=== PATIENT | female | born 1950 ===

== ENCOUNTER 2018-01-01 12:15 | Inpatient (IN) | payer OTHER ==
[~2018-01-01] VITALS: Ht 152.4 cm; Wt 87.5 kg
[2018-01-15] MEDS ORDERED: FORTAMET1000 MG PO (15:51)
[2018-01-15] MEDS ORDERED: LANTUS SOL100 UNIT/1 (15:51)
[2018-01-15] MEDS ORDERED: LOSARTAN POTAS100 MG PO (15:51)
[2018-01-15] MEDS ORDERED: [UNRECOGNIZED DRUG - OTHER] PO (15:52)
[2018-01-15] MEDS ORDERED: GABAPENTIN800 MG PO (15:52)
[2018-01-15] MEDS ORDERED: RESTORIL30 MG PO (15:53)
[2018-01-15] MEDS ORDERED: CLONAZEPAM2 M1 PO (15:53)
[2018-01-15] MEDS ORDERED: CATAFLAN PO (15:54)
[2018-01-15] MEDS ORDERED: BACLOFEN PO (15:54)
[2018-01-15] MEDS ORDERED: PRILOSEC OTC20 MG PO (15:54)
[2018-01-20] MEDS ORDERED: DOCUSATE SODIU100 MG PO (08:02)
[2018-01-20] MEDS ORDERED: GABAPENTIN800 MG PO (08:02)
[2018-01-20] MEDS ORDERED: MEDROLPACK PO (08:03)
[2018-01-20] MEDS ORDERED: AMOX-CLAV 875-1 EACH PO (08:03)
[2018-01-20] MEDS ORDERED: PERCOCET 5-3251 EACH PO (08:04)
[2018-01-20] MEDS ORDERED: RESTORIL30 M1 PO (08:04)
== END 2018-01-20 14:31 | disposition home or self-care (01) | DRG 455 ==
LOC: PED 01-19 05:04 → O/R 01-19 05:04 → SURG 01-19 12:15 → PED 01-19 19:56
PROVIDERS: Orthopaedic Surgery Orthopaedic Surgery of the Spine
PROC: 0SG1071 Fusion of 2 or more Lumbar Vertebral Joints with Autologous Tissue Substitute, Posterior Approach, Posterior Column, Open Approach (ICD-10-PCS; 2018-01-19)
PROC: 0ST20ZZ Resection of Lumbar Vertebral Disc, Open Approach (ICD-10-PCS; 2018-01-19)
PROC: 0SG10AJ Fusion of 2 or more Lumbar Vertebral Joints with Interbody Fusion Device, Posterior Approach, Anterior Column, Open Approach (ICD-10-PCS; 2018-01-19)
PROC: 07DS3ZZ Extraction of Vertebral Bone Marrow, Percutaneous Approach (ICD-10-PCS; 2018-01-19)
PROC: 0SG10A0 Fusion of 2 or more Lumbar Vertebral Joints with Interbody Fusion Device, Anterior Approach, Anterior Column, Open Approach (ICD-10-PCS; principal; 2018-01-19 14:30)
DX: M47.26 Other spondylosis with radiculopathy, lumbar region (principal); M48.061 Spinal stenosis, lumbar region without neurogenic claudication; M51.16 Intervertebral disc disorders with radiculopathy, lumbar region; I10 Essential (primary) hypertension; E11.9 Type 2 diabetes mellitus without complications